=== PATIENT | female | born 1950 | race Caucasian/White ===

== ENCOUNTER 2022-03-04 17:04 | Inpatient (IN) | payer OTHER ==
[~2022-03-04] VITALS: Ht 167.6 cm; Wt 46.6 kg
[~2022-03-04 17:04] MED LIST: ALBU.083IS IH; AMLO10 PO; AMLO5 PO; Augmentin 500-1 EACH PO; CLIN300 PO; Flomax0.4 MG PO; KETO10 PO; LEVSOD100 PO; LEVSOD75 PO; MUPI2TO TOP; PARO20 PO; PRAV20; PRAV20 PO; PROC5 PO; Percocet 5-3251 EACH PO
[2022-03-04 17:55] LABS: Base Excess Venous 1.7 mmol/L; Bicarbonate Venous 23.8 mmol/L (24.0-30.0); PCO2 Venous 46.4 mmHg (38-42); pH Blood Venous 7.37 (7.34-7.37)
[2022-03-04 18:11] LABS: BASOPHILS ABSOLUTE AUTO 0.09 K/mm3 (0.00-0.23); BASOPHILS PERCENT AUTO 0 % (0-2); EOSINOPHILS PERCENT AUTO 0 % (0-6); Hematocrit 44.6 % (33.0-51.0); Hemoglobin 13.7 g/dL (11.5-16.0); IMMATURE GRAN ABSOLUTE AUTO 0.42 K/mm3 (0.00-0.10); IMMATURE GRAN PERCENT AUTO 1 % (0-1); LYMPHOCYTES ABSOLUTE AUTO 0.91 K/mm3 (0.84-5.20); LYMPHOCYTES PERCENT AUTO 3 % (21-46); MONOCYTES ABSOLUTE AUTO 0.86 K/mm3 (0.16-1.47); MONOCYTES PERCENT AUTO 3 % (4-13); Mean Corpuscular HGB 28.4 pg (26.0-34.0); Mean Corpuscular HGB Conc 30.7 g/dL (31.5-36.5); Mean Corpuscular Volume 93 fL (80-100); Mean Platelet Volume 10.8 fL (9.1-12.4); NEUTROPHILS PERCENT AUTO 93 % (41-73); Platelet Count 316 K/mm3 (150-400); RDW Coefficient Variation 13.8 % (11.7-14.2); RDW Standard Deviation 47.1 fL (35.1-46.3); Red Blood Cell Count 4.82 M/mm3 (3.80-5.20); White Blood Cell Count 30.88 K/mm3 (4.00-11.30)
[2022-03-04 18:21] LABS: Alanine Aminotransfer (ALT/SGP 46 U/L (12-78); Albumin, Blood 2.3 g/dL (3.4-5.0); Albumin/Globulin Ratio 0.5 (0.8-1.8); Alk Phos 86 U/L (50-136); Anion Gap 8 mmol/L (6-16); Aspartate Aminotrans (AST/SGOT 55 U/L (12-37); Bilirubin, Total 0.6 mg/dL (0.1-1.0); Blood Urea Nitrogen 54 mg/dL (8-24); Bun/Creatinine Ratio 30.2 (12.0-20.0); CO2, Blood 25 mmol/L (21-32); Calcium, Blood 8.9 mg/dL (8.5-10.1); Chloride, Blood 122 mmol/L (98-108); Creatinine, Blood 1.79 mg/dL (0.40-1.00); Ethanol (Alcohol), Blood, Med <3 mg/dL; Globulin, Blood 4.7 g/dL (2.2-4.0); Glomerular Filtration Rate 30 (60-); Glucose, Blood 321 mg/dL (70-99); Potassium, Blood 4.6 mmol/L (3.5-5.5); Sodium, Blood 155 mmol/L (136-145)
[2022-03-04 19:51] LABS: Influenza A, PCR NEGATIVE (NEGATIVE); Influenza B, PCR NEGATIVE (NEGATIVE); Resp Syncytial Virus, PCR NEGATIVE (NEGATIVE); SARS-Cov-2 (COVID-19) PCR, MMC NEGATIVE (NEGATIVE)
[2022-03-04 21:06] LABS: Source, Urine Straight Cath
[2022-03-04 21:09] LABS: Blood, Urine 1+ (Neg); Glucose Qualitative, Urine Neg (Neg); Ketones, Urine 1+ (Neg); Leukocyte Esterase, Urine 1+ (Neg); Nitrite, Urine Neg (Neg); Protein, Urine 2+ (Neg); Urobilinogen, Urine 1+ (Normal)
[2022-03-04 21:20] LABS: Bilirubin, Urine 1+ (Neg)
[2022-03-04 21:21] LABS: Appearance, Urine Hazy (Clear); Color, Urine Yellow (P-Yellow)
[2022-03-04 21:23] LABS: Bacteria Few /hpf; Mucus Mod (0-Heavy); Squamous Epithelial Cells Few /hpf (Few)
[2022-03-04 21:24] LABS: Amorphous Light (0-Heavy)
[2022-03-04 21:33] LABS: U Amphetamine Screen Not Detected; U Barbituate Screen Not Detected; U Benzodiazapine Screen Not Detected; U Buprenorphine Screen Not Detected; U Cannabinoids Screen DETECTED; U Cocaine Screen Not Detected; U Methadone Screen Not Detected; U Methamphetamine Screen Not Detected; U Opiates Screen Not Detected; U Oxycodone Screen Not Detected; U Phencyclidine Screen Not Detected; U Propoxyphene Screen Not Detected
--- NOTE | 2022-03-05 01:00 | NUR ---
ARRIVAL TO ICU 4/CALL TO PT ARRIVED FROM ED VIA GURNEY. ON 15L NON-REBREATHER W/ SPO2 GREATER THAN 92%. PT OPENS EYES TO VERBAL STIMULI AND WILL TRACK NURSE. ABLE TO SAY ONE OR TWO WORDS AT TIMES. NOT ABLE TO FOLLOW COMMANDS. MOVES ALL EXTREMITIES SPONTANEOUSLY. PT HAS PRESSURE ULCERS TO R BUTTOCK, R FOOT, AND L LENNON/CALF. MULTIPLE RED BUT BLANCHABLE SINGH SCATTERED T/O. PICTURES TAKEN AND IN CHART. SEE ADMISSION ASSESSMENT FOR FULL ASSESSMENT. CALL MADE TO ANG. VERBAL CONSENT RECEIVED FOR BLOOD PRODUCTS, AND RELEASE OF VERBAL INFORMATION. DID CONFIRM DNR STATUS. STATED HE WILL BRING IN PT MEDICATIONS IN AM.
[2022-03-05 01:05] LABS: Bun/Creatinine Ratio 38.2 (12.0-20.0); Calcium, Blood 7.6 mg/dL (8.5-10.1); Creatinine, Blood 1.36 mg/dL (0.40-1.00)
[2022-03-05 01:42] LABS: Source, Urine Foley catheter
[2022-03-05 01:45] LABS: Bilirubin, Urine Neg (Neg); Blood, Urine Neg (Neg); Glucose Qualitative, Urine Neg (Neg); Ketones, Urine Neg (Neg); Leukocyte Esterase, Urine Neg (Neg); Nitrite, Urine Neg (Neg); Protein, Urine 2+ (Neg); Urobilinogen, Urine NORM (Normal)
[2022-03-05 02:38] LABS: Appearance, Urine Clear (Clear); Color, Urine Yellow (P-Yellow)
[2022-03-05 02:39] LABS: Calcium Oxalate Crystals Mod /hpf; Granular Casts 0-2 /lpf (0); Hyaline Casts 0-2 /lpf (0-2)
[2022-03-05 02:47] LABS: Bacteria Few /hpf; Red Blood Cells, Urine 0-2 /hpf (0-2); Squamous Epithelial Cells Mod /hpf (Few); White Blood Cells, Urine 0-2 /hpf (0-5)
[2022-03-05 03:42] LABS: Creatine Kinase MB 2.1 ng/mL (0.0-3.6); Creatine Kinase MB Index 0.6 (0.0-4.0)
[2022-03-05 05:26] LABS: BASOPHILS ABSOLUTE AUTO 0.06 K/mm3 (0.00-0.23); BASOPHILS PERCENT AUTO 0 % (0-2); EOSINOPHILS ABSOLUTE AUTO 0.05 K/mm3 (0.00-0.68); EOSINOPHILS PERCENT AUTO 0 % (0-6); Hematocrit 33.5 % (33.0-51.0); Hemoglobin 10.3 g/dL (11.5-16.0); IMMATURE GRAN ABSOLUTE AUTO 0.32 K/mm3 (0.00-0.10); IMMATURE GRAN PERCENT AUTO 1 % (0-1); LYMPHOCYTES PERCENT AUTO 6 % (21-46); MONOCYTES ABSOLUTE AUTO 0.79 K/mm3 (0.16-1.47); MONOCYTES PERCENT AUTO 3 % (4-13); Mean Corpuscular HGB 28.2 pg (26.0-34.0); Mean Corpuscular HGB Conc 30.7 g/dL (31.5-36.5); Mean Corpuscular Volume 92 fL (80-100); NEUTROPHILS ABSOLUTE AUTO 23.13 K/mm3 (1.96-9.15); NEUTROPHILS PERCENT AUTO 89 % (41-73); Platelet Count 189 K/mm3 (150-400); RDW Coefficient Variation 13.5 % (11.7-14.2); RDW Standard Deviation 46.5 fL (35.1-46.3); Red Blood Cell Count 3.65 M/mm3 (3.80-5.20); White Blood Cell Count 25.95 K/mm3 (4.00-11.30)
[2022-03-05 06:09] LABS: Albumin, Blood 1.7 g/dL (3.4-5.0); Albumin/Globulin Ratio 0.5 (0.8-1.8); Bilirubin, Total 0.3 mg/dL (0.1-1.0); Bun/Creatinine Ratio 43.5 (12.0-20.0); Calcium, Blood 7.7 mg/dL (8.5-10.1); Creatinine, Blood 1.08 mg/dL (0.40-1.00); Globulin, Blood 3.7 g/dL (2.2-4.0); Potassium, Blood 3.7 mmol/L (3.5-5.5); Total Protein, Blood 5.4 g/dL (6.4-8.2)
--- NOTE | 2022-03-05 06:17 | NUR ---
SHIFT SUMMARY PT MORE ALERT T/O NIGHT. WAKES EASILY AND ABLE TO TRACK NURSE. 4L HFNC W/ SATS GREATER THAN 90%. VSS. D5W AT 100/ML. SYKES INSERTED THIS SHIFT. GOOD OUTPUT. PG TO RONY. WILL REPORT TO ONCOMING RN.
--- NOTE | 2022-03-05 06:35 | NUR ---
SHIFT SUMMARY PT REMAINS INTUBATED AND SEDATED. VENT SETTINGS NOW 18/8/100%. TURNED PT FOR BED BATH AND MORE SPUTUM SUCTIONED FROM ETT. SINCE BED BATH PRESSURE SUPPORT AND FIO2 INCREASED. HOSP ORDERED STAT CHEST XRAY. NOW COMPLETE AND WAITING TO BE READ. PROPOFOL INCREASED FOR VENT COMPLIANCE. PT COUGHING AND MOVING LOWER EXTREMITIES. NO MOVEMENT IN BUE. SYKES PATENT AND DRAINING TO GRAVITY. WILL REPORT OFF TO ONCOMING RN.
[2022-03-05 07:49] LABS: Albumin, Blood 1.6 g/dL (3.4-5.0); Anion Gap 4 mmol/L (6-16); Blood Urea Nitrogen 46 mg/dL (8-24); Bun/Creatinine Ratio 42.6 (12.0-20.0); CO2, Blood 27 mmol/L (21-32); Calcium, Blood 7.4 mg/dL (8.5-10.1); Chloride, Blood 128 mmol/L (98-108); Creatinine, Blood 1.08 mg/dL (0.40-1.00); Glomerular Filtration Rate 54 (60-); Glucose, Blood 283 mg/dL (70-99); Phosphorus, Blood 2.2 mg/dL (2.5-4.9); Potassium, Blood 3.7 mmol/L (3.5-5.5); Sodium, Blood 159 mmol/L (136-145)
[2022-03-05 08:12] LABS: Creatine Kinase MB 2.1 ng/mL (0.0-3.6); Creatine Kinase MB Index 0.7 (0.0-4.0)
--- NOTE | 2022-03-05 09:40 | NUR ---
CARE OF PT ASSUMED AT 0700. PT SLEEPING, AWAKENS TO VOICE, NON VERBAL, VERY CONFUSED. PT PLACED HER ARMS UP IN A DEFENSIVE POSITION WHEN I WENT TO TAKE HER TEMPATURE, SHE APPEARED VERY AFRAID. THEN MOMENTS LATER SHE SMILED, THEN GIGGLED, THEN LOOKED CONCERNED AGAIN. PT DOES NOT FOLLOW COMMANDS. BP SOFT W MAPS >65. DR MCKEON IN THIS AM AROUND 0730 TO SEE PT, FULL UPDATE GIVEN. REPEAT RP DRAWN, RESULTS GIVEN TO DR MCKEON; NO FURTHER ORDERS AT THIS TIME. D5W INFUSING AT 100CC/HR. CALLED FOR UPDATE THIS AM; UPDATE GIVEN.
[2022-03-05] MEDS ORDERED: DONE5 PO (11:22)
[2022-03-05] MEDS ORDERED: MEMA10 PO (11:23)
[2022-03-05 11:34] LABS: Bun/Creatinine Ratio 40.8 (12.0-20.0); Calcium, Blood 7.7 mg/dL (8.5-10.1); Creatinine, Blood 0.96 mg/dL (0.40-1.00); Potassium, Blood 3.4 mmol/L (3.5-5.5)
--- NOTE | 2022-03-05 13:04 | NUR ---
DR MCKEON SPOKE W PT'S DAUGHTER AND AT BEDSIDE. PT NOW COMFORT CARE STATUS. PT APPEARS COMFORTABLE NOW BUT CRIES OUT WITH ANY CARE, PT HAS SEVERAL PRESSURE ULCERS. WILL PREMEDICATE BEFORE BATH.
--- NOTE | 2022-03-05 16:38 | NUR ---
Checked in on Natalie. Spoke with her dtr and at bedside. Natalie is sleeping and appears to be comfortable at this time. Family has no questions at this time. PC to remain available for support and symptom managment prn.
--- NOTE | 2022-03-05 16:49 | NUR ---
pt's family request pain meds for pt. pt was awake and restless. pt moaning w grimace. medicated w ms 2mg.
--- NOTE | 2022-03-06 05:26 | NUR ---
Shift summary: Pt has been resting in bed in no apparent distress. She only opens her eyes when repositioning, but no moaning or air hunger noted. She appears comfortable and quickly falls back to sleep. Her VS have been stable overnight. HR in the 70s, BP low 100s/60s and O2 sat ranging from 70-90. PRN medications available. Jain draining clear yellow urine, no BM overnight.
--- NOTE | 2022-03-06 07:47 | NUR ---
PT SLEEPING, APPEARS UMCOMFORTABLE; RESTLESS AND GRIMACING. PT REPOSTIONED, MOANS W POSITION CHANGE. WET NONPRODUCTIVE COUGH. PT SUCTIONED AND GIVEN ATROPINE DROPS SL. PT MEDICATED W SL MS. ORAL CARE GIVEN. MEPILEX TO PRESSURE ULCER INTACT/COCCYX. PT HAS TWO OTHER PRESSURE ULCERS ON LEGS THAT SHE WAS ADMITTED WITH, IT APPEARS MAYBE FROM CROSSED LEGS, ONE ON LENNON AND ONE ON FOOT. ULCERS ARE NOT DRAINING AND OPEN TO AIR. PT VERY CONFUSED, MAKES MOSTLY SOUNDS AND VERY FEW WORDS. UNABLE TO FOLLOW COMMANDS.
--- NOTE | 2022-03-06 16:55 | NUR ---
RN REPORTS PT HAS BEEN RESTING COMF, NO AGITATION OR PAIN AT THIS TIME. PT IS SITTING UPRIGHT IN THE BED, MUSIC IS PLAYING ON THE TV AND THE LIGHTS AE TURED DOWN IN THE ROOM. PT WILL LOOK AT THIS RN WHEN I SPEAK TO HER, BUT HAS NON-SENSICAL RESPONSES TO QUESTIONS OR WILL JUST STARE AND NOT ANSWER. PT FACE IS RELAXED AND BREATHING IN UNLABORED, SHE APPEARS TO BE COMFORTABLE. SHE WILL OCCASIONALLY REACH UP AND GRAB AT THINGS IN THE AIR. PT'S SON IS AT THE BEDSIDE WHEN I ENTER THE ROOM. HE IS TEARFUL AND ASKS QUESTIONS ABOUT WHAT TO EXPECT THE PT NEARS END OF LIFE. GENTLY EXPLAINED WHAT TO EXPECT PT DECLINES NATURE TAKES ITS COURSE. EXPLAIN THAT HALLUCINATIONS ARE NORMAL AND TO CONTINUE TO REDIRECT THE PT BY HOLDING HER HAND ANS SPEAKING TO HER TO LET HER KNOW HE IS THERE. PROVIDED EDUCATION ON WHAT COMFORT CARE IS, THE FOCUS OF COMFORT AND QUALITY OF LIFE AND HE VU. ADVISED PALLIATIVE CARE WILL CONTINUE TO FOLLOW AND OFFER SUPPORT.
--- NOTE | 2022-03-06 17:33 | NUR ---
PT GIVEN BED BATH. PT AGITATED, HALLUCINATING. MOANING, GRIMACING, CRYING OUT. "OW" OVER AND OVER. PT MEDICATED WITH PO CHRISTIAN.
--- NOTE | 2022-03-07 11:30 | NUR ---
Spiritual care visit conducted. Pt is lying in bed and minimally responsive. Pt's spouse, Wellington is bedside and tells me about pt's 3 yr andino with dementia and his stance to maintain being her caregiver as long as possible. He states that her level of care is beyond his abilities at this point. He hopes that she can at the hospital. He talks about her life and personality, her career, and their two grown children and 4 grandchildren. He shares about their 58 yrs of marriage and the ups and downs of living in [facility] for 40, plus yrs. I explore their [employer]alism Christain beliefs and what meaning that has to him in this particular medical situation they find themselves in. I normalize his fears and concerns, reinforce helful attitudes and practices and provide therapeutic listening, anticipitory grief support and prayer. Wellington responds well and shjows signs of being comforted. I will cotninue to remain available to pt and family.
--- NOTE | 2022-03-07 12:27 | NUR ---
Pt appears to be transitioning; she is no longer eating or drinking, and waking very little. is unable to care for her at home due to frailty, and pt would not survive waiting for a medicaid approval. Bedside RN aware and medicating appropriately. Charge nurse aware.
--- NOTE | 2022-03-07 13:53 | NUR ---
SHIFT SUMMARY PT IS ON COMFORT CARE. RESTING WITH EYES CLOSED, OPENS EYES TO STIMULATION. HR 80, RESP RATE 16 ON AM ASSESSMENT. DOES NO FOLLOW COMMANDS. NO PRN MEDICATION PROVIDED THIS SHIFT PT APPEARS COMFORTABLE. AT BEDSIDE, UPDATED ON CONDITION AND POC. SPIRITUAL CARE AND PALLIATIVE CARE VISITIED AND WILL CONTINUE TO FOLLOW. AT THIS TIME, PT APPEARS IMMINENT IN THE NEXT 1-3 DAYS SHE HAS NOT HAD ANY ORAL INTAKE OF ANY KIND. SYKES IN PLACE DRAINING CLEAR YELLOW URINE. PT TO BE TRANSFERED TO SURGICAL FLOOR (ROOM 224). REPORT CALLED TO BEENA WISE.
--- NOTE | 2022-03-07 16:41 | NUR ---
SHIFT SUMMARY PT WAKENS WITH VERBAL REQUEST, APPEARS PEACEFUL AND COMFORTABLE. SYKES PATENT & DRAINING YELLOW URINE 600 MLS. WILL REPORT TO ONCOMING NOC RN.
--- NOTE | 2022-03-08 06:33 | NUR ---
PT APPEARED TO SLEEP FOR MAJORITY OF NIGHT, RESPONDS TO VERBAL STIMULI, IS MORE AWAKE THIS AM. PT REPOSITIONED Q2 T/O NIGHT, NO DISTRESS NOTED W/REPOSITIONING. PT MED FOR PAIN X1 THIS AM FOR FACE SCALE OF 4. NO PO INTAKE, SMALL AMT YELLOW URINE IN SYEKS. ORAL CARE PRN T/O NIGHT.
--- NOTE | 2022-03-08 08:30 | NUR ---
WET COUGH NOTED. SCOP PATCH APPLIED.
--- NOTE | 2022-03-08 16:21 | NUR ---
Spiritual care/music type therapy visit conducted. Pt is lying in bed and alert. She looks at me and tries to speak but her words are unclear. I tell her I brought my guitar and would like to play for her. She nods her head yes, I ask how she is doing and then she speaks much but it is not certain to me what she is saying but it does not sound good. I ask if prayer would be ok and she nods yes and mumbles. I gladly provide prayer for her. I then play guitar for 35 minutes. Pt is a bit unsettled at first but then relaxes notibly. After sefveral songs she drifted into some rest, opening her eyes periodically and amd looking at me then going back to resting. She finally falls into a deep sleep and I pack up my things (not too quietly) but she does not move. Pt shows signs of increased peace and being comforted by the music. I will continue to reamin available to patient and family.
--- NOTE | 2022-03-08 18:44 | NUR ---
SHIFT SUMMARY PT WAS BRIGHT-EYED & MUMBLING NON-SENSICAL WORDS UNTIL AROUND 1400 THEN BECAME SOMULENT & SLEEPY. AWAKENS EASILY TO VERBAL STIMULI. NO PO INTAKE TODAY. REFUSED ORAL CARE AT X's BY CLAMPING MOUTH CLOSED. TOLERATES REPOSITIONING WELL.
--- NOTE | 2022-03-09 11:59 | NUR ---
Spiritual care visit conducted. Pt is sleeping and pt's spouse, Pat is bedside. He immediately shares about his fears about cost of the hospital stay and about his fears of the hospital sending her home before she expires. Pt is fearful about how ugly the transfer home might be and he is hoping that the hospital will allow her to stay, at least until Monday. Pt talks about the many stressors he is feeling, about the gratitude that he has that his dtr is coming today to help him manage all that is on his plate and about his prayer that God would take her quick so her suffering would not be extended. I provide therapeutic listening, anxiety containment and prayer. Pat responds well and shows signs of reduced stress. I will continue to remain available to patient and family.
--- NOTE | 2022-03-09 19:09 | NUR ---
SHIFT SUMMARY HAS BEEN DROWSY & RESPONDS TO VERAL STIMULI OR TOUCH. NO PO INTAKE. FAMILY AT SIDE PERIODICALLY.
--- NOTE | 2022-03-10 08:58 | NUR ---
PT APPEARS TO BE RESTING COMFORTABLY. NO NON-VERBAL SIGNS OF PAIN AT THIS TIME. PT IS SLEEPING WILL NOT REPOSITION, WILL WAIT UNTIL PT WAKES.
--- NOTE | 2022-03-10 11:01 | NUR ---
FAMILY IN ROOM.
--- NOTE | 2022-03-11 04:31 | NUR ---
PT SLEPT T/O THE NIGHT, DID NOT REQUIRE ANY MEDICAITON. RESPONDS MINIMALLY TO BEING REPOSITIONED. NO PO INTAKE. CALL LIGHT IN REACH, BED ALARM ON.
--- NOTE | 2022-03-11 11:35 | NUR ---
PATIENT DISCHARGED HOME ON HOSPICE. SYKES STILL IN PLACE FOR HOME. IV POWERGLIDE WAS TAKEN OUT AND WNL. HARD PERSCRIPTIONS WERE PLACED IN A FOLDER WHICH SPOUSE IS AWARE OF AND WAS GIVEN TO THE TRANSPORTERS. TRANSPORTERS HAVE PATIENT ON A GURNEY TO BE TAKEN HOME ON HOSPICE.
== END 2022-03-11 11:37 | disposition hospice, home (50) | DRG 871 ==
LOC: ER 17:04 → PCU 19:30 → ICUW 19:30 → ER 19:30 → ICUE 19:30 → PCU 03-07 02:56 → SURS 03-07 13:51
PROVIDERS: Emergency Medicine; Family Medicine; ADMIT Internal Medicine
DX: A41.9 Sepsis, unspecified organism (principal); G93.41 Metabolic encephalopathy; J18.9 Pneumonia, unspecified organism; E87.0 Hyperosmolality and hypernatremia; N17.9 Acute kidney failure, unspecified; E87.20 Acidosis, unspecified; J44.0 Chronic obstructive pulmonary disease with (acute) lower respiratory infection; I95.9 Hypotension, unspecified; R77.8 Other specified abnormalities of plasma proteins; Z51.5 Encounter for palliative care; Z66 Do not resuscitate; E78.1 Pure hyperglyceridemia; E05.00 Thyrotoxicosis with diffuse goiter without thyrotoxic crisis or storm; I10 Essential (primary) hypertension; L89.310 Pressure ulcer of right buttock, unstageable; L89.610 Pressure ulcer of right heel, unstageable; L89.890 Pressure ulcer of other site, unstageable; E78.00 Pure hypercholesterolemia, unspecified; E03.9 Hypothyroidism, unspecified; F32.A Depression, unspecified; G43.409 Hemiplegic migraine, not intractable, without status migrainosus; E86.0 Dehydration; R73.9 Hyperglycemia, unspecified; F01.C0 Vascular dementia, severe, without behavioral disturbance, psychotic disturbance, mood disturbance, and anxiety; E86.9 Volume depletion, unspecified; Z20.822 Contact with and (suspected) exposure to COVID-19; Z88.2 Allergy status to sulfonamides; Z88.1 Allergy status to other antibiotic agents; Z86.73 Personal history of transient ischemic attack (TIA), and cerebral infarction without residual deficits; Z91.013 Allergy to seafood; Z91.038 Other insect allergy status; Z79.899 Other long term (current) drug therapy; Z79.891 Long term (current) use of opiate analgesic; Z86.711 Personal history of pulmonary embolism; Z90.49 Acquired absence of other specified parts of digestive tract; Z98.890 Other specified postprocedural states; Z90.710 Acquired absence of both cervix and uterus; Z90.722 Acquired absence of ovaries, bilateral
CPT/HCPCS: 0241U; 36415; 51701; 51702; 70450; 71045; 76770; 80048; 80053; 80069; 81001; 82140; 82550; 82553; 82803; 82947; 83605; 83880; 84484; 85025; 85379; 87040; 87086; 93005; 93010; 93306; 96365-59; 96366-59; 96367-59; 96375-59; 99285-25; A9270; C1751; G0480; J0295; J0456; J0696; J1630; J1650; J1815; J2270; J2405; J7030; J7050; J7070